=== PATIENT | female | born 1940 | race Caucasian/White ===

== ENCOUNTER 2018-02-19 12:53 | Inpatient (IN) | payer MEDICARE, OTHER ==
[~2018-02-19 12:53] MED LIST: Lidocaine 1% PF 5 ML VIAL ONE; PROPOFOL 200 MG/20 ML VIAL ONE
[2018-02-19] MEDS ORDERED: Pantoprazole 40 MG VIAL ONE (13:16)
[2018-02-19 13:25] LABS: Bilirubin Negative (Negative); Blood, Urine Negative (Negative); Clarity Clear (Clear); Glucose, Urine (Dipstick) Negative (Negative); Leukocyte Negative (Negative); Nitrite Negative (Negative); Protein, Urine (Dipstick) Negative (Neg-Trace); Urobilinogen 0.2 mg/dL (0.2-1.0); pH, Urine 6.5 (5.0-9.0)
[2018-02-19 13:34] LABS: #Basophils 0.1 thou/uL (0.0-0.2); #Eosinphils 0.1 thou/uL (0.0-0.7); #Lymphocytes 1.8 thou/uL (1.20-3.40); #Monocytes 0.8 thou/uL (0.11-0.59); #Neutrophils 5.5 thou/uL (1.40-6.50); %Eosinophils 1.1 % (0.0-10.0); %Lymphocytes 21.6 % (21.0-51.0); %Monocytes 9.8 % (0.0-10.0); %Neutrophils 66.5 % (42.0-75.0); Hemoglobin 11.8 g/dL (12.0-16.0); Mean Corpuscular HGB CONC 32.9 g/dL (32.0-36.0); Mean Corpuscular Hemoglobin 29.2 pg (27.0-31.0); Mean Corpuscular Volume 88.9 fL (78.0-98.0); Mean Platelet Volume 8.6 fL (7.4-10.4); Platelet Count 180 thou/uL (130-400); RBC Distribution Width 12.7 % (11.5-14.5); Red Blood Cell (RBC) Count 4.05 mill/uL (4.20-5.40); White Blood Cell (WBC) Count 8.3 thou/uL (4.8-10.8)
[2018-02-19 13:56] LABS: ALT (SGPT) 18 U/L (8-55); AST (SGOT) 17 U/L (5-34); Alkaline Phosphatase 67 U/L (40-150); Anion Gap 14 mmol/L (10-20); BUN (Urea Nitrogen) 29 mg/dL (9.8-20.1); Bilirubin, Total 0.4 mg/dL (0.2-1.2); Calc. Creatinine Clearance 0 mL/min (70-130); Calcium 9.7 mg/dL (7.8-10.44); Carbon Dioxide 24 mmol/L (23-31); Chloride 108 mmol/L (98-107); Estimated GFR-MDRD 59; Globulin 2.7 g/dL (2.4-3.5); Glucose 148 mg/dL (83-110); Potassium 4.1 mmol/L (3.5-5.1); Protein, Total 6.7 g/dL (6.0-8.3); Sodium 142 mmol/L (136-145)
[2018-02-19 14:00] LABS: CKMB 0.7 ng/mL (0-6.6); Troponin I Less than 0.010 ng/mL (< 0.028)
--- NOTE | 2018-02-19 14:09 | RAD ---
SINGLE VIEW OF THE CHEST: COMPARISON: 04/16/2016. HISTORY: Black tarry stools with nausea and vomiting. FINDINGS: Single view of the chest shows a normal sized cardiomediastinal silhouette. There is no evidence of c onsolidation, mass, or pleural effusion. The bones are unremarkable. IMPRESSION: No evidence of acute cardiopulmonary disease. POS: [facility]
[2018-02-19 16:42] VITALS: BMI 30.1
[2018-02-19] MEDS ORDERED: Sodium Chloride 0.9% 1,000 ML IV SCH (16:45)
[2018-02-19] MEDS ORDERED: hydrALAZINE 20 MG/ML VIAL SLOW IVP PRN (19:14)
[2018-02-19] MEDS ORDERED: Ondansetron PF 4 MG/2 ML Vial IVP PRN (19:14)
[2018-02-19] MEDS ORDERED: Pantoprazole 40 MG VIAL IVP SCH (21:00)
[2018-02-19] MEDS: Pantoprazole 40 MG VIAL IVP SCH (22:35)
[2018-02-19 23:34] LABS: Hemoglobin 11.7 g/dL (12.0-16.0)
--- NOTE | 2018-02-20 01:49 | HP ---
PRIMARY CARE PHYSICIAN: Angelia Chavez M.D. CHIEF COMPLAINT: Black stools. HISTORY OF PRESENT ILLNESS: Ms. Hicks is a pleasant 77-year-old female that has a history of hyperte nsion as well as restless leg syndrome. She was in her usual state of health until approximately a w iqugmiut or two ago. She started having some burning epigastric pain which typically would happen with ev coleen meal. She was taking Tums and Zantac and it initially would go away after taking the Tums and Za ntac; however, last night was the first time it did not go away. She also noticed that this morning when she got up, she had a small bowel movement that was extremely black. She says that she had 3 or 4 more episodes as well. She called her physician, Dr. Chavez, who recommended that she come to the emergency room for evaluation. She denies any nausea, no vomiting, no diarrhea. She has not had any problems with constipation. She does admit to taking an Aleve about 2 times a week and othe rwise no other symptoms such as any hematemesis, dysphagia, etc. Her only other complaints are some occasional joint and back pains, which she says has been chronic. REVIEW OF SYSTEMS: All systems are reviewed and are negative except for that mentioned in history of present illness. PAST MEDICAL HISTORY: Significant for hypertension as well as restless leg syndrome and chronic back pain. PAST SURGICAL HISTORY: She has had an appendectomy, cholecystectomy, and hysterectomy. ALLERGIES: DECONGESTANTS. SOCIAL HISTORY: She is . She is a nonsmoker, nondrinker. She lives at home with her . Her is her medical power of personal injury attorney as well as her son and her code status is FULL CODE; however, she would not want to be on life support for a prolonged period of time. FAMILY HISTORY: No history of any heritable diseases. MEDICATIONS: Include amlodipine 5 mg daily and lisinopril 40 mg a day. PHYSICAL EXAMINATION: GENERAL: She is alert and oriented. She appears to be in no acute distress. She is well-developed and well-nourished. VITAL SIGNS: Blood pressure is 155/71, heart rate 60, respiratory rate of 18, temperature is 98.1. HEENT: Pupils are equal, round, and reactive. Extraocular muscles are intact. Her sclerae are anic teric. Throat: There is no erythema, no exudates. NECK: There is no adenopathy, no bruits. LUNGS: Clear to auscultation bilaterally. There was no wheezing, no rales, no rhonchi. CARDIOVASCULAR: She had a normal S1 and S2. I did not appreciate an S3 or S4. No murmurs, clicks, no rubs. ABDOMEN: Obese, it is soft. There was no tenderness. No rebound or guarding. No organomegaly. EXTREMITIES. There is no clubbing, cyanosis, no edema. No calf tenderness. NEUROLOGIC: Muscle strength is 5/5 grossly in both her upper and lower extremities. Her cranial ner ves are intact II-XII. SKIN AND INTEGUMENT: There are no significant skin changes. No rash. LABORATORY RESULTS: Sodium was 142, potassium 4.1, chloride is 108, CO2 is 24, BUN of 29, creatinine 0.93, glucose is 148, AST is 17, ALT is 18. Troponin less than 0.010. White blood cell count is 8. 3, hemoglobin 11.8, hematocrit is 36.0, platelet count is 180. Urinalysis is negative. She had an E KG which was sinus rhythm, the rate was 76. No acute ST wave changes and this is by my reading. Als o had a chest x-ray, it was actually poorly penetrated, her heart size looks slightly enlarged and th ere was no evidence of any infiltrate. Again, this is by my reading. ASSESSMENT AND PLAN: 1. This is a pleasant 77-year-old female who presents to the emergency room with dark stools, melano tic stools and she has been having an intermittent epigastric pain. This is likely an upper gastroin testinal bleed, possibly as a result of peptic ulcer disease and/or gastritis. Risk factors include the use of the anti-inflammatory medications. She will be placed in observation, started on IV Taya nix or PPI. We will also place her on IV saline administration. We will monitor her H&Hs and transf use, should she have a significant symptomatic drop in her hemoglobin or if it drops below 7. 2. Hypertension. Since she is n.p.o., we will treat her with p.r.n. IV medications. When she is al lowed to eat, we can restart her usual home medications. 3. Restless leg syndrome. It appears as if she is not currently on any medications for this. We wi ll hold off on starting any medications and this can be deferred to the outpatient setting. 4. We will hold off on Lovenox for DVT prophylaxis and place her on SCDs only.
--- NOTE | 2018-02-20 04:29 | OP ---
DATE OF PROCEDURE: 02/19/2018 OPERATIVE PROCEDURE: Esophagogastroduodenoscopy with biopsy. PREOPERATIVE DIAGNOSES: A 77-year-old with fever, abdominal pain, nausea, history of black tarry sto ol. She is undergoing esophagogastroduodenoscopy. POSTOPERATIVE DIAGNOSES: 1. Large hiatus hernia. 2. Large gastric ulcer proximal stomach, nonbleeding. 3. gastric body, nonbleeding. PROCEDURE IN DETAIL: The patient was placed on her left lateral position and was given sedation by A nesthesia Department. A Pentax video gastroscope under direct vision was passed down the oropharynx, past the GE junction, into the stomach and subsequently into descending duodenum. At the time of en doscopy, stomach is completely empty. There is no fresh blood or any coffee-ground material seen. T he esophagus appeared normal. The GE junction, no pathology seen. The patient has a large hiatus he rnia. Retroflexion showed two gastric ulcerations of the proximal stomach. Although risk of black e schar, but no active bleeding seen. The gastric body, gastric antrum, no pathology seen. The duoden al bulb, descending duodenum, no pathology seen. Biopsy of the gastric antrum and gastric body. The stomach was decompressed and the scope removed. RECOMMENDATIONS: 1. Clear liquid diet. 2. Follow hemoglobin and hematocrit. 3. IV PPI. 4. . Advance diet to regular diet tomorrow.
[2018-02-20 05:24] LABS: #Eosinphils 0.2 thou/uL (0.0-0.7); #Lymphocytes 1.6 thou/uL (1.20-3.40); #Monocytes 0.7 thou/uL (0.11-0.59); #Neutrophils 3.8 thou/uL (1.40-6.50); %Basophils 0.6 % (0.0-1.0); %Eosinophils 2.6 % (0.0-10.0); %Lymphocytes 25.3 % (21.0-51.0); %Monocytes 11.2 % (0.0-10.0); %Neutrophils 60.4 % (42.0-75.0); Hemoglobin 10.5 g/dL (12.0-16.0); Mean Corpuscular HGB CONC 33.1 g/dL (32.0-36.0); Mean Corpuscular Hemoglobin 30.8 pg (27.0-31.0); Mean Platelet Volume 8.7 fL (7.4-10.4); Platelet Count 204 thou/uL (130-400); RBC Distribution Width 12.5 % (11.5-14.5); Red Blood Cell (RBC) Count 3.41 mill/uL (4.20-5.40); White Blood Cell (WBC) Count 6.3 thou/uL (4.8-10.8)
[2018-02-20 05:38] LABS: Anion Gap 11 mmol/L (10-20); BUN (Urea Nitrogen) 23 mg/dL (9.8-20.1); Calc. Creatinine Clearance 81 mL/min (70-130); Calcium 8.5 mg/dL (7.8-10.44); Carbon Dioxide 24 mmol/L (23-31); Chloride 111 mmol/L (98-107); Estimated GFR-MDRD 66; Glucose 94 mg/dL (83-110); Potassium 4.4 mmol/L (3.5-5.1); Sodium 142 mmol/L (136-145)
[2018-02-20] MEDS: Pantoprazole 40 MG VIAL IVP SCH (08:40)
--- NOTE | 2018-02-20 10:08 | CON ---
DATE OF CONSULTATION: 02/19/2018 REFERRING PHYSICIAN: Dr. Josiah Wong, [facility]. REASON FOR CONSULTATION: History of black tarry stool since last night, epigastric burning pain and nausea. HISTORY OF PRESENT ILLNESS: Ms. Farrah Hicks is a very pleasant 77-year-old female, who is known to me from before. The patient had seen me in 2017 for history of a change in bowel and consti pation. She had colonoscopy and polypectomy in 05/2017. She was advised to take high-fiber diet ___ __. The patient has been having retrosternal burning pain, epigastric burning pain over the last 3 t o 4 weeks. The patient has a history of chronic back pain and knee pain. She has been taking meloxi cam once a day for several months and she stopped taking it a month ago. She often takes Aleve at le ast twice a week for back pain and bilateral knee pains. The patient has been having burning pain, n ausea over the last 4 weeks. She continued antiacid and also Zantac on a regular basis. The patient had noticed tarry stools last night and she had 4 stools last night. The stools were small in quant ity. The patient after he had black tarry stool, her nausea resolved. Today, she is actually feelin g better. She had one more stool this morning and the stool was tarry. The patient has no prior his tory of ulcer disease. No prior history of any abdominal pain or any black tarry stool. The patient is actually feeling better today. Her nausea, heartburn, and epigastric burning pain resolved. No relevant history. ALLERGIES: COLD REMEDIES and ANTIHISTAMINES. SOCIAL HISTORY: The patient is . Does not smoke or drink alcohol. MEDICAL ILLNESSES: 1. Hypertension. 2. Chronic back pain and arthritis. 3. Restless legs syndrome. 4. Colon polyp, early this year. PAST SURGICAL HISTORY: 1. Appendectomy. 2. Hysterectomy. 3. Cholecystectomy. 4. Colonoscopy and polypectomy in 05/2017. MEDICATIONS: List reviewed. REVIEW OF SYSTEMS: A 10-point system review. Constitutional: No history of fever. History of weig ht gain over 40 pounds over the last 3 months. No history of any fatigue, tiredness. She has good e xercise tolerance. HEENT: Vision is normal. Hearing is mildly impaired. No sore throat. Neck: N o neck pain. No radiculopathy. Lungs: No history of chronic coughing, no hemoptysis, no dyspnea. Cardiovascular system: No chest pain, no palpitation, no exertional dyspnea, orthopnea or PND. Kyle rointestinal: History of heartburn, indigestion, nausea over the last 4 weeks. She has a history of constipation off and on. Genitourinary: No dysuria, frequency of urination, hematuria. Musculoske letal: Chronic back pain, knee pains and arthralgias. Neuropsychiatric: No history of depression o r anxiety. PHYSICAL EXAMINATION: GENERAL: The patient is obese, appears very comfortable, awake, alert, and communicative. She is or iented to time, place, and person. She is hard of hearing. VITAL SIGNS: Temperature 98 degrees Fahrenheit, pulse is 82, blood pressure is 148/80. HEENT: Conjunctivae clear. NECK: Supple. No adenitis or thyromegaly noted. CARDIOVASCULAR SYSTEM: First and second heart sounds normal. LUNGS: Clear to auscultation. ABDOMEN: Abdomen is soft. Abdomen is mildly tender over the epigastric area. There is no rebound o r guarding. No organomegaly. No masses. EXTREMITIES: Reveal no edema. LABORATORY DATA: Shows hemoglobin 11.8. BUN is slightly high at 29, mostly from GI bleeding. CLINICAL IMPRESSION: 1. A 77-year-old female with indigestion, heartburn and epigastric discomfort with nausea over the last 4 weeks. She had developed tarry stool last night. Blood count is fairly stable at 11 .8. The patient has no prior history of gastrointestinal bleeding. 2. Hypertension. 3. Chronic back pain, . 4. Restless legs syndrome. 5. Colon polyp in 2018. PLAN: 1. Emergent EGD later on today. 2. IV PPI. 3. Follow up H&H and transfuse p.r.n. I had a long talk with Ms. Hicks and explained to her that sh e should not take any more NSAID medication because of the gastrointestinal bleeding.
--- NOTE | 2018-02-20 14:45 | PDOC.PN ---
- Subjective Encounter Start Date: 02/20/18 Encounter Start Time: 12:30 Ms. Hicks was seen today in follow-up of GI bleed and abdominal pain. She has had the EGD, and says today she feels fine. she denies any abdominal pain, or nausea. - Objective Resuscitation Status: Resuscitation Status FULL:Full Resuscitation MAR Reviewed: Yes Vital Signs & Weight: Vital Signs (12 hours) Temp Pulse Resp BP Pulse Ox 02/20/18 12:00 97.5 F L 80 18 116/69 98 02/20/18 08:00 97.7 F 76 18 125/75 95 02/20/18 04:08 97.3 F L 69 16 114/65 97 Weight Weight 198 lb Result Diagrams: 02/20/18 04:12 02/20/18 04:12 Phys Exam - Physical Examination HEENT: PERRLA Respiratory: no wheezing, no rales, no rhonchi, clear to auscultation bilateral Cardiovascular: RRR, no significant murmur, no rub Gastrointestinal: soft, non-tender, no distention, positive bowel sounds Musculoskeletal: no edema, pulses present Dx/Plan (1) Gastric ulcer with hemorrhage Code(s): K25.4 - CHRONIC OR UNSPECIFIED GASTRIC ULCER WITH HEMORRHAGE Status: Acute (2) Acute blood loss anemia Code(s): D62 - ACUTE POSTHEMORRHAGIC ANEMIA Status: Acute (3) Hypertension Code(s): I10 - ESSENTIAL (PRIMARY) HYPERTENSION Status: Chronic (4) Restless leg syndrome, controlled Code(s): G25.81 - RESTLESS LEGS SYNDROME Status: Chronic - Plan * Gastric Ulcer- EGD report noted, she was found to have 2 gastric ulcers, and a large hiatal hernia. Will continue PPI therapy. Her diet has been advanced * Continue to monitor H&H * HTN- blood pressure is controlled. Will re-start Amlodipine tonight, and Lisinopril tomorrow * Hopefully home soon.
--- NOTE | 2018-02-20 16:52 | PRG ---
DATE OF SERVICE: 02/20/2018 SUBJECTIVE: Ms. Farrah Hicks is a very pleasant 77-year-old female hospitalized with melena , abdominal pain. She had an EGD done and was found to have hiatus hernia and also gastric ulcer x2. There is no active bleeding seen at the time of endoscopy. The patient has no more abdominal pain. She had a stool today . There is no nausea and no vomiting. PHYSICAL EXAMINATION: VITAL SIGNS: Stable. Afebrile, pulse is 69, blood pressure 114/66. HEENT: Conjunctivae clear. CARDIOVASCULAR SYSTEM AND LUNGS: Within normal limits. ABDOMEN: Soft. No organomegaly. No tenderness. No masses. LABORATORY DATA: From this morning, WBC 6300, hemoglobin is 10.5, hematocrit 31.7. Her BUN is dropp ing down to 23 from 29. Electrolytes are normal. CLINICAL IMPRESSION: 1. Gastric ulcer. 2. Upper gastrointestinal bleeding. No active bleeding at the time of endoscopy. 3. Hiatus hernia. RECOMMENDATIONS: 1. Advance diet, regular diet. 2. Follow hemoglobin and hematocrit. 3. Continue proton-pump inhibitor.
[2018-02-20] MEDS ORDERED: Amlodipine 5 MG TAB PO SCH (21:00)
[2018-02-21 05:16] LABS: #Basophils 0.1 thou/uL (0.0-0.2); #Eosinphils 0.2 thou/uL (0.0-0.7); #Lymphocytes 1.7 thou/uL (1.20-3.40); #Monocytes 0.7 thou/uL (0.11-0.59); #Neutrophils 3.2 thou/uL (1.40-6.50); %Basophils 0.9 % (0.0-1.0); %Eosinophils 4.1 % (0.0-10.0); %Lymphocytes 28.3 % (21.0-51.0); %Monocytes 11.8 % (0.0-10.0); Hemoglobin 10.2 g/dL (12.0-16.0); Mean Corpuscular HGB CONC 32.4 g/dL (32.0-36.0); Mean Corpuscular Hemoglobin 30.3 pg (27.0-31.0); Mean Corpuscular Volume 93.6 fL (78.0-98.0); Mean Platelet Volume 8.6 fL (7.4-10.4); Platelet Count 193 thou/uL (130-400); RBC Distribution Width 12.4 % (11.5-14.5); Red Blood Cell (RBC) Count 3.35 mill/uL (4.20-5.40); White Blood Cell (WBC) Count 5.8 thou/uL (4.8-10.8)
[2018-02-21 07:47] VITALS: BP 151/70; TEMP 98.2
[2018-02-21] MEDS ORDERED: Lisinopril 20 MG TAB PO SCH (09:00)
--- NOTE | 2018-02-21 15:24 | DIS ---
DATE OF ADMISSION: 02/19/2018 DATE OF DISCHARGE: 02/21/2018 PRIMARY CARE PHYSICIAN: Angelia Chavez M.D. DISCHARGE DISPOSITION: Home. PRIMARY DISCHARGE DIAGNOSES: 1. Gastric ulcer with bleed. 2. Acute blood loss anemia. 3. Hypertension. 4. Restless legs syndrome. DISCHARGE MEDICATION: Include Protonix 40 mg twice a day for a month, then 40 mg daily. PROCEDURES DONE DURING ADMISSION: The patient had an upper endoscopy and it demonstrated a large hia lupe hernia, large gastric ulcer in the proximal stomach which was nonbleeding and another ulcer in th e gastric body which was also nonbleeding. CODE STATUS: FULL CODE. ALLERGIES: To CHLORPHENTERMINE and PSEUDOEPHEDRINE. HOSPITAL COURSE: Ms. Hicks is a very pleasant 77-year-old female that has a history of hypertension and restless legs syndrome. She presented to the emergency room with complaints of burning epigastri c pain as well as black stools. She admits to occasionally using an anti-inflammatory, but not more than about twice a week. She denied any hematemesis at that time. She was found to be mildly anemic with hemoglobin that at its lowest was 10.2. She was seen by Gastroenterology. She underwent upper endoscopy. The source of the bleeding was likely as the result of the gastric ulcers. There were n o signs of bleeding during the endoscopy. She was placed on high dose Protonix and her hemoglobin an d hematocrit remained stable. Post procedure, she was clinically stable and subsequently able to be discharged home to have close followup with Dr. Monte as instructed and also with her primary car e physician in approximately 1-2 weeks. She was instructed to avoid anti-inflammatory medicines.
== END 2018-02-21 14:05 | disposition home or self-care (01) | DRG 378 ==
LOC: SCSER 12:53 → T4-A 16:30 → OBSVTOIN 02-20 15:52
PROVIDERS: ADMIT Family Medicine; ATTEND Family Medicine
PROC: 0DB68ZX Excision of Stomach, Via Natural or Artificial Opening Endoscopic, Diagnostic (ICD-10-PCS; principal; 2018-02-19)
DX: K25.4 Chronic or unspecified gastric ulcer with hemorrhage (principal); D62 Acute posthemorrhagic anemia; K25.9 Gastric ulcer, unspecified as acute or chronic, without hemorrhage or perforation; K44.9 Diaphragmatic hernia without obstruction or gangrene; I10 Essential (primary) hypertension; G25.81 Restless legs syndrome; M54.9 Dorsalgia, unspecified; G89.29 Other chronic pain; K63.5 Polyp of colon
CPT/HCPCS: 36415; 71045; 80048; 80053; 81003; 82274; 82553; 84484; 85025; 88305; 88312; 93005; 96374; C9113

== ENCOUNTER 2018-04-10 14:02 | Outpatient (CLI) | payer MEDICARE, OTHER ==
[2018-04-10 14:30] LABS: #Basophils 0.1 thou/uL (0.0-0.2); #Eosinphils 0.2 thou/uL (0.0-0.7); #Lymphocytes 1.6 thou/uL (1.20-3.40); #Monocytes 0.8 thou/uL (0.11-0.59); #Neutrophils 5.5 thou/uL (1.40-6.50); %Basophils 0.7 % (0.0-1.0); %Eosinophils 2.1 % (0.0-10.0); %Lymphocytes 19.4 % (21.0-51.0); %Monocytes 9.4 % (0.0-10.0); %Neutrophils 68.4 % (42.0-75.0); Hemoglobin 12.2 g/dL (12.0-16.0); Mean Corpuscular HGB CONC 30.9 g/dL (32.0-36.0); Mean Corpuscular Hemoglobin 28.1 pg (27.0-31.0); Mean Corpuscular Volume 90.8 fL (78.0-98.0); Mean Platelet Volume 8.4 fL (7.4-10.4); Platelet Count 212 thou/uL (130-400); RBC Distribution Width 12.8 % (11.5-14.5); Red Blood Cell (RBC) Count 4.35 mill/uL (4.20-5.40)
[2018-04-10 14:55] LABS: ALT (SGPT) 17 U/L (8-55); AST (SGOT) 18 U/L (5-34); Albumin 4.2 g/dL (3.4-4.8); Alkaline Phosphatase 78 U/L (40-150); Anion Gap 12 mmol/L (10-20); BUN (Urea Nitrogen) 18 mg/dL (9.8-20.1); Bilirubin, Total 0.5 mg/dL (0.2-1.2); Calc. Creatinine Clearance 0 mL/min (70-130); Calcium 9.2 mg/dL (7.8-10.44); Carbon Dioxide 26 mmol/L (23-31); Chloride 108 mmol/L (98-107); Estimated GFR-MDRD 73; Globulin 2.7 g/dL (2.4-3.5); Glucose 86 mg/dL (83-110); Protein, Total 6.9 g/dL (6.0-8.3); Sodium 142 mmol/L (136-145)
--- NOTE | 2018-04-10 15:21 | RAD ---
TWO VIEW CHEST SERIES: Indication: Lower extremity edema, pain. FINDINGS: There is enlargement of the cardiac silhouette. Mild patchy density at the left lung base is present. The right lung is grossly clear. There is vascular calcification. No significant vascular congestion . IMPRESSION: 1. Mild patchy left basilar density. This could relate to volume loss, scar, a mild degree of edema i s also possible. 2. Mild enlargement of the cardiac silhouette. 3. Atherosclerotic vascular disease. POS: [facility]
--- NOTE | 2018-04-10 15:25 | RAD ---
LUMBAR SPINE RADIOGRAPH SERIES TWO TO THREE VIEW SERIES 04/10/18 INDICATION: Low back pain. FINDINGS: There is levoscoliosis of the lumbar spine, epicenter at L3. Multilevel end plate degenerative change s present most pronounced at L 2-3 and L5-S1. No acute compression fracture. IMPRESSION: Multilevel degenerative change and levoscoliosis of the lumbar spine. POS: [facility]
== END 2018-04-10 14:03 | disposition home or self-care (01) ==
LOC: SCSRAD 14:02
PROVIDERS: ATTEND Family Medicine
DX: R60.9 Edema, unspecified (principal); M47.816 Spondylosis without myelopathy or radiculopathy, lumbar region; M41.9 Scoliosis, unspecified; M47.817 Spondylosis without myelopathy or radiculopathy, lumbosacral region; I25.10 Atherosclerotic heart disease of native coronary artery without angina pectoris; I51.7 Cardiomegaly
CPT/HCPCS: 36415; 71046; 72100; 80053; 83880; 84443; 85025; 85379

== ENCOUNTER 2018-04-10 20:34 | Emergency (ER) | payer MEDICARE, OTHER ==
--- NOTE | 2018-04-10 22:34 | ULT ---
RIGHT LOWER EXTREMITY AND LEFT LOWER EXTREMITY VENOUS ULTRASOUND WITH DOPPLER: 04/10/18 HISTORY: Bilateral lower extremity edema and swelling. COMPARISON: None. TECHNIQUE: Bravo scale, color flow, doppler imaging with spectral waveform analysis performed in the left and rig ht lower extremity venous system. FINDINGS: Bilaterally, there is compressibility, presence of flow and augmentation in the common femoral vein, femoral vein, and popliteal vein. There is flow in bilateral great saphenous veins, profunda veins, and posterior tibial vein. IMPRESSION: No evidence of thrombus in the left or right lower extremity deep venous system. POS: [facility]
== END 2018-04-10 22:45 | disposition home or self-care (01) ==
LOC: SCSER 20:34
DX: R60.0 Localized edema (principal); I10 Essential (primary) hypertension; Z79.899 Other long term (current) drug therapy
CPT/HCPCS: 36415; 71046; 72100; 80053; 83880; 84443; 85025; 85379; 93970

== ENCOUNTER 2018-05-22 12:16 | Outpatient (CLI) | payer MEDICARE, OTHER ==
--- NOTE | 2018-05-22 14:20 | MRI ---
MRI LUMBAR SPINE NONCONTRAST: HISTORY: Low back pain. Bilateral radiculopathy, right greater than left. FINDINGS: The conus medullaris has a normal appearance. Leftward convex rotatory scoliotic curvature. Vertebr al body heights are maintained. Desiccation of all the intervertebral disks. T12-L1/L1-L2: Mild osteophytosis. The central canal and neural foramina are patent. L2-L3: Disk space narrowing. Osteophytosis and discogenic endplate bone marrow changes are most pro nounced at this level. Diffuse posterior disk bulge. Circumferential degenerative changes with mild stenosis of the central canal and each neural foramen. L3-L4: Mild disk bulge. Circumferential degenerative changes. Mild stenosis of the central canal a nd each neural foramen. L4-L5: Disk space narrowing. Diffuse posterior disk protrusion and circumferential degenerative kenrick nges. Moderate stenosis of the central canal. Moderate right and mild left foraminal stenosis. L5-S1: Posterior annular disk fissure and mild posterior central disk bulge. Minimal effacement of the thecal sac. Degenerative changes with moderate right and moderate to severe left foraminal steno sis. IMPRESSION: 1. Moderate multilevel degenerative changes throughout the lumbar spine, as detailed above. 2. Stenosis most pronounced at the left neural foramen of the lumbosacral junction. Clinical correlation regarding the left L5 dermatome is required. POS: [facility]
== END 2018-05-22 12:17 | disposition home or self-care (01) ==
LOC: SCSMRI 12:16
PROVIDERS: ATTEND Internal Medicine
DX: M51.16 Intervertebral disc disorders with radiculopathy, lumbar region (principal); M47.26 Other spondylosis with radiculopathy, lumbar region; M48.07 Spinal stenosis, lumbosacral region
CPT/HCPCS: 72148

== ENCOUNTER 2018-06-03 05:45 | Day surgery (SDC) | payer MEDICARE, OTHER ==
[2018-06-02 08:36] VITALS: BMI 29.6
--- NOTE | 2018-06-02 10:09 | HP ---
HISTORY OF PRESENT ILLNESS: This is a 77-year-old female with upper GI bleeding and was found to have gastric ulcer a few months ago. The patient is on omeprazole 40 once a day. The patient done very well since her discharge three months ago. She has had no abdominal pain. No recurrence of bleeding. The patient was brought in today for a repeat EGD and documentation of ulcer healing. ALLERGIES: COLD REMEDIES AND ALSO ANTIHISTAMINES. SOCIAL HISTORY: The patient does not smoke or drink alcohol. PAST MEDICAL HISTORY: 1. Hypertension. 2. Chronic back pain and arthritis. 3. Restless legs syndrome. 4. Colon polyp. 5. Bleeding gastric ulcer in February of 2018. PHYSICAL EXAMINATION: VITAL SIGNS: Pulse is 70, blood pressure 130/70. HEENT: Conjunctivae clear. CARDIOVASCULAR SYSTEM: First and second heart sounds were heard. LUNGS: Clear to auscultation. ABDOMEN: Soft. No organomegaly. No tenderness. No masses. EXTREMITIES: Reveal no edema. ADMITTING DIAGNOSIS: Bleeding gastric ulcers in February of 2018 and the patient brought in today for repeat esophagogastroduodenoscopy and documentation of ulcer healing. Job ID: [id number] [facility]
--- NOTE | 2018-06-03 09:24 | OP ---
DATE OF PROCEDURE: 06/03/2018 OPERATIVE PROCEDURE: Esophagogastroduodenoscopy with biopsy. PREOPERATIVE DIAGNOSIS: Bleeding gastric ulcer in February 2018. The patient has been on omeprazole 40 once a day over the last 3 months. The patient is asymptomatic. The patient comes for a repeat esophagogastroduodenoscopy. POSTOPERATIVE DIAGNOSES: 1. Moderate-sized hiatal hernia. 2. Normal esophagus. 3. Gastric polyp in the gastric body. 4. Mild antral gastritis. DESCRIPTION OF PROCEDURE: The patient was placed on her left lateral position and was given sedation by Anesthesia Department. A Pentax video gastroscope under direct vision was passed down the oropharynx past the GE junction into the stomach and subsequently into the descending duodenum. The esophageal mucosa appeared normal. At the GE junction, no pathology seen. The patient has a moderate-sized hiatal hernia. Retroflexion failed to show any pathology in the fundus or cardia. In the gastric body, the patient already got gastric polyp. The polyp was biopsied. Gastric antral mucosa mildly hyperemic and edematous. In the incisura angularis, no pathology seen. In the duodenal bulb, descending duodenum, no pathology seen. The stomach decompressed, and the scope was removed. DISCHARGE PLANNING: Ms. Farrah Hicks is a very pleasant 77-year-old female with upper gastrointestinal bleeding and bleeding gastric ulcer in February 2018. The patient underwent repeat EGD. EGD showed healed gastric ulcer. She had minimal antral gastritis and also had small gastric polyp. DISCHARGE RECOMMENDATIONS: 1. Continue omeprazole 40 once a day. 2. Avoid NSAIDs medications. 3. She was advised to call me if she develops abdominal pain, hematochezia. 4. She will come back to clinic as needed. Job ID: [id number]
[2018-06-03] MEDS ORDERED: PROPOFOL 200 MG/20 ML VIAL ONE (15:52)
== END 2018-06-03 10:49 | disposition home or self-care (01) ==
LOC: SDC 05:45
PROVIDERS: ATTEND Internal Medicine Gastroenterology
PROC: 0DB78ZX Excision of Stomach, Pylorus, Via Natural or Artificial Opening Endoscopic, Diagnostic (ICD-10-PCS; principal; 2018-06-03)
DX: K31.7 Polyp of stomach and duodenum (principal); K29.70 Gastritis, unspecified, without bleeding; K44.9 Diaphragmatic hernia without obstruction or gangrene; I10 Essential (primary) hypertension; M19.90 Unspecified osteoarthritis, unspecified site; G89.29 Other chronic pain; M54.9 Dorsalgia, unspecified; G25.81 Restless legs syndrome; Z86.010 Personal history of colon polyps; Z79.899 Other long term (current) drug therapy; Z88.8 Allergy status to other drugs, medicaments and biological substances
CPT/HCPCS: 88305; 88312; J2704

== ENCOUNTER 2018-06-16 14:49 | Outpatient (CLI) | payer MEDICARE, OTHER ==
--- NOTE | 2018-06-16 15:47 | RAD ---
LUMBAR SPINE 3 VIEWS: HISTORY: Back pain. COMPARISON: 04/10/2018. FINDINGS: Lumbar spondylosis with narrowing and disk-osteophytosis, particularly at L4-L5, L5-S1, and L2-L3. N o abnormal translation between flexion and extension. IMPRESSION: Extensive spondylosis. No abnormal translation between flexion and extension. POS: [facility]
== END 2018-06-16 14:50 | disposition home or self-care (01) ==
LOC: TBSIIMAG 14:49
PROVIDERS: ATTEND Neurological Surgery
DX: M51.16 Intervertebral disc disorders with radiculopathy, lumbar region (principal); M47.26 Other spondylosis with radiculopathy, lumbar region; M54.5 Low back pain
CPT/HCPCS: 72100